=== PATIENT | male | born 1940 | race Caucasian/White ===

== ENCOUNTER 2017-09-07 15:22 | Outpatient (CLI) | payer MEDICARE ==
[2017-09-07 17:48] LABS: BASOPHILS % (AUTO) 0.4 %; EOSINOPHILS # (AUTO) 0.1 10^3/uL (0.0-0.7); EOSINOPHILS % (AUTO) 2.5 %; HGB - HEMOGLOBIN 14.4 g/dL (14.0-18.0); LYMPHOCYTES # (AUTO) 1.7 10^3/uL (1.5-3.5); LYMPHOCYTES % (AUTO) 32.3 %; MEAN CORPUSCULAR HEMOGLOBIN 28.8 pg (27.0-31.0); MEAN CORPUSCULAR HGB CONC 33.3 g/dL (32.0-36.0); MEAN CORPUSCULAR VOLUME 86.6 fL (80.0-94.0); MEAN PLATELET VOLUME 8.9 fL (7.4-11.4); MONOCYTES # (AUTO) 0.4 10^3/uL (0.0-1.0); MONOCYTES % (AUTO) 8.5 %; NEUTROPHILS # (AUTO) 2.9 10^3/uL (1.5-6.6); NEUTROPHILS % (AUTO) 56.3 %; PLT - PLATELET COUNT 169 10^3/uL (130-450); RED BLOOD COUNT 4.98 10^6/uL (4.70-6.10); WHITE BLOOD COUNT 5.2 x10^3/uL (4.8-10.8)
== END 2017-09-07 15:23 | disposition home or self-care (01) ==
LOC: LAB.F 15:22
PROVIDERS: ATTEND Internal Medicine
DX: M79.672 Pain in left foot (principal)
CPT/HCPCS: 36415; 84550; 85025

== ENCOUNTER 2017-09-08 07:47 | Outpatient (CLI) | payer MEDICARE ==
--- NOTE | 2017-09-08 10:31 | XRAY Report ---
THREE-VIEW LEFT FOOT: 09/08/2017 CLINICAL INDICATION: Pain. FINDINGS: AP, lateral, and oblique views of the left foot demonstrate severe osteoarthritis of the first metatarsophalangeal joint. Osteoarthritis is also seen in the interphalangeal joints. There is no evidence of acute fracture or dislocation. No radiopaque foreign body is seen in the soft tissues. IMPRESSION: SEVERE OSTEOARTHRITIS OF THE FIRST METATARSOPHALANGEAL JOINT. TD: 09/08/2017 10:04
== END 2017-09-08 07:48 | disposition home or self-care (01) ==
LOC: DI 07:47
PROVIDERS: ATTEND Internal Medicine
DX: M19.072 Primary osteoarthritis, left ankle and foot (principal)

== ENCOUNTER 2019-06-22 10:24 | Outpatient (CLI) | payer MEDICARE ==
--- NOTE | 2019-06-22 16:28 | XRAY Report ---
Reason: ASTHMA Procedure Date: 06/22/2019 Accession Number: [id number] / [id number] Procedure: XR - Chest 2 View X-Ray CPT Code: 78084 Final Report FULL RESULT: EXAM: CHEST RADIOGRAPHY EXAM DATE: 06/22/2019 10:31 AM. CLINICAL HISTORY: Asthma. COMPARISON: Chest radiograph from 04/24/2014. TECHNIQUE: 2 views. FINDINGS: Lungs/Pleura: There is minimal linear left basilar opacity, most compatible with atelectasis. No other airspace opacity. No pleural effusion or pneumothorax. Lung volumes are within normal limits. 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 Cardiomediastinal contour is otherwise within normal limits. Pulmonary vasculature is unremarkable. Other: None. IMPRESSION: 1. Minimal left basilar atelectasis. Otherwise no acute cardiopulmonary abnormality. 2. Moderate-large paraesophageal hernia. [facility]
== END 2019-06-22 10:25 | disposition home or self-care (01) ==
LOC: DI 10:24
PROVIDERS: ATTEND Internal Medicine
DX: J45.909 Unspecified asthma, uncomplicated (principal); J98.11 Atelectasis; K44.9 Diaphragmatic hernia without obstruction or gangrene
CPT/HCPCS: 71046